=== PATIENT | female | born 2000 | race African-American/Black ===

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

== ENCOUNTER → 2019-11-02 | Outpatient (CLI) | payer OTHER ==
--- NOTE | 2019-11-02 10:03 | RAD ---
Examination: 5 views of the lumbar spine HISTORY: History of back pain COMPARISON: None available. FINDINGS: The lumbar vertebral body heights are maintained. No evidence of listhesis. IMPRESSION: No acute osseous findings. Electronically signed by: Cory Bhakta MD (11/02/2019 10:00 AM) [id number]
== END | disposition home or self-care (01) ==
LOC: PMG 09:11
PROVIDERS: ATTEND Physician Assistant Medical
DX: M54.5 Low back pain (principal)
CPT/HCPCS: 72110

== ENCOUNTER 2020-11-24 15:45 | Emergency (ER) | payer OTHER ==
[~2020-11-24] VITALS: Ht 160 cm; Wt 79.0 kg
[2020-11-24 16:39] VITALS: BP 150/78
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
[2020-11-24] MEDS ORDERED: ORPH-16 PO (16:54)
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
[2020-11-24] MEDS ORDERED: IBUPROFEN 600 MG TABLET. PO ONE ×2 (16:59→17:00)
== END 2020-11-24 17:12 | disposition home or self-care (01) ==
LOC: ER 15:45
DX: S16.1XXA Strain of muscle, fascia and tendon at neck level, initial encounter (principal); S29.012A Strain of muscle and tendon of back wall of thorax, initial encounter; S00.83XA Contusion of other part of head, initial encounter; Z86.2 Personal history of diseases of the blood and blood-forming organs and certain disorders involving the immune mechanism; Y08.89XA Assault by other specified means, initial encounter; Y93.89 Activity, other specified; Y92.89 Other specified places as the place of occurrence of the external cause; Y99.8 Other external cause status
CPT/HCPCS: 70450; 70486; 72125; 99285-25